=== PATIENT | male | born 1995 | race Asian ===

== ENCOUNTER 2019-03-03 06:23 | Emergency (ER) | payer OTHER ==
[~2019-03-03] VITALS: Ht 167.6 cm; Wt 91.6 kg
[2019-03-03 06:35] VITALS: BP_SYST 136
[2019-03-03 07:10] LABS: BILIRUBIN,URINE NEGATIVE (NEGATIVE); BLOOD, URINE NEGATIVE (NEGATIVE); CLARITY/URINE SL HAZY (CLEAR); COLOR,URINE YELLOW (YELLOW); GLUCOSE,URINE NEGATIVE (NEGATIVE); KETONES,URINE NEGATIVE (NEGATIVE); LEUKOCYTE ESTERASE ,URINE NEGATIVE (NEGATIVE); NITRITE, URINE NEGATIVE (NEGATIVE); PH,URINE 5.5 (5.0-8.0); PROTEIN URINE NEGATIVE (NEGATIVE); UROBILINOGEN,URINE 0.2 (0.2-1.0)
[2019-03-03 07:45] VITALS: BP_SYST 138
== END 2019-03-03 07:45 | disposition home or self-care (01) ==
LOC: SED 06:23
DX: N34.2 Other urethritis (principal); R30.0 Dysuria
CPT/HCPCS: 81003; 99283

== ENCOUNTER 2022-06-02 08:35 | Emergency (ER) | payer OTHER ==
[~2022-06-02] VITALS: Ht 167.6 cm; Wt 83.9 kg
[2022-06-02 08:41] VITALS: BP_SYST 142
--- NOTE | 2022-06-02 08:45 | NUR ---
Patient to ER bed 08 for evaluation. Side rails up. Report given to GLORIA Randolph.
--- NOTE | 2022-06-02 08:45 | NUR ---
DR. MERCEDES AT BEDSIDE TO ASSESS PT. PT HAS C/O BACK PAIN RADIATING TO LEFT THIGH, PT HAS PAST HX OF HERNIATED DISCS. RESP E/U. ON R/A. VSS. AT BEDSIDE.
[2022-06-02] MEDS ORDERED: DIAZEPAM 5 MG TABLET (VALIUM) PO ONE (09:00)
[2022-06-02] MEDS ORDERED: MORPHINE SULFATE 10 MG/ML VIAL IM ONE (09:00)
[2022-06-02] MEDS ORDERED: PRED20TA PO (09:15)
[2022-06-02] MEDS ORDERED: HYDR-3921 PO (09:15)
[2022-06-02] MEDS ORDERED: METH-634 PO (09:15)
[2022-06-02] MEDS ORDERED: IBUP-1969 PO (09:15)
[2022-06-02 10:34] VITALS: BP_SYST 138
--- NOTE | 2022-06-02 10:39 | NUR ---
Patient given written and verbal discharge instructions and verbalizes understanding. ER MD discussed with patient the results and treatment provided. Patient in stable condition. ID arm band removed. Rx of NORCO, IBUPRFEN, ROBAXIN, PREDNISONE given. Patient educated on pain management and to follow up with PMD. Pain Scale . Opportunity for questions provided and answered. Medication side effect fact sheet provided.
== END 2022-06-02 10:34 | disposition home or self-care (01) ==
LOC: SED 08:35
DX: M54.50 Low back pain, unspecified (principal); G89.29 Other chronic pain; M54.16 Radiculopathy, lumbar region; Z79.899 Other long term (current) drug therapy
CPT/HCPCS: 99283; 72100; 96372; J2270

== ENCOUNTER 2022-10-09 08:50 | Emergency (ER) | payer BC, OTHER ==
[~2022-10-09] VITALS: Ht 167.6 cm; Wt 93.0 kg
[~2022-10-09 08:50] MED LIST: HYDR-3921 PO; IBUP-1969 PO; METH-634 PO; PRED20TA PO
[2022-10-09 09:05] VITALS: BP_SYST 96
[2022-10-09] MEDS ORDERED: LIDOCAINE PATCH 5% 1 EA TP STA (09:20)
[2022-10-09] MEDS ORDERED: KETOROLAC TROMETHAMINE 15 MG VIAL IM ONE (09:30)
[2022-10-09] MEDS ORDERED: methocarbamoL 500 MG TABLET PO ONE (09:30)
[2022-10-09] MEDS ORDERED: HYDROcodone/ACETAMIN 5-325 MG TAB (NORCO/ VICODIN) PO ONE (09:30)
--- NOTE | 2022-10-09 09:46 | NUR ---
PT NOT IN LOBBY ROOM TO BE CALLED INTO HALLWAY BED.
[2022-10-09] MEDS ORDERED: LIDO1ADH77 TD (10:13)
[2022-10-09] MEDS ORDERED: IBUP-1969 PO (10:14)
[2022-10-09] MEDS ORDERED: METH-634 PO (10:14)
--- NOTE | 2022-10-09 11:05 | NUR ---
27-year-old male with history of chronic back pain, presents with flareup of his lumbar back pain. Patient states he initially sustained an injury in 2018. He is seen at the [facility] has had an MRI in the past and has another 1 upcoming in November. Patient states that he woke up today with a flareup, which recurs every few months. He said the pain is mostly left lumbar region with radiation into his left buttock and thigh. Denies any recent injuries or trauma. Denies IV drug abuse. No lower extremity weakness, pt ambulates with limp in gait. Patient is using Motrin at home and lidocaine patches with some help.
--- NOTE | 2022-10-09 11:08 | NUR ---
ER at bedside examining patient.
--- NOTE | 2022-10-09 13:20 | NUR ---
Patient given written and verbal discharge instructions and verbalizes understanding. ER MD discussed with patient the results and treatment provided. Patient in stable condition. ID arm band removed. Rx of LIDOCAINE MOTRIN AND PAIN MEDICATION given. Patient educated on pain management and to follow up with PMD. Opportunity for questions provided and answered. Medication side effect fact sheet provided.
[2022-10-09 13:21] VITALS: BP_SYST 110
== END 2022-10-09 13:20 | disposition home or self-care (01) ==
LOC: SED 08:50
DX: M54.50 Low back pain, unspecified (principal); M79.652 Pain in left thigh; Z79.899 Other long term (current) drug therapy
CPT/HCPCS: 99283; J1885

== ENCOUNTER 2023-04-17 13:11 | Emergency (ER) | payer BC, OTHER ==
[~2023-04-17] VITALS: Ht 162.6 cm; Wt 77.1 kg
[~2023-04-17 13:11] MED LIST changes: +LIDO1ADH77 TD
[2023-04-17 13:31] VITALS: BP_SYST 142
[2023-04-17] MEDS ORDERED: ceFAZolin SODIUM 1 GM VIAL IM ONE (14:15)
[2023-04-17] MEDS ORDERED: IBUPROFEN 800 MG TABLET PO ONE (14:15)
[2023-04-17] MEDS ORDERED: DICL20GE TP (14:55)
[2023-04-17] MEDS ORDERED: CEPH-548 PO (14:55)
[2023-04-17] MEDS ORDERED: IBUP-1971 PO (14:55)
[2023-04-17 15:13] VITALS: BP_SYST 142
== END 2023-04-17 15:14 | disposition home or self-care (01) ==
LOC: SED 13:11
DX: S50.362A Insect bite (nonvenomous) of left elbow, initial encounter (principal); L03.114 Cellulitis of left upper limb; Z79.899 Other long term (current) drug therapy; W57.XXXA Bitten or stung by nonvenomous insect and other nonvenomous arthropods, initial encounter; Y93.89 Activity, other specified; Y92.89 Other specified places as the place of occurrence of the external cause; Y99.8 Other external cause status
CPT/HCPCS: 99283; 96372; J0690

== ENCOUNTER 2023-04-21 05:07 | Emergency (ER) | payer BC, OTHER ==
[~2023-04-21 05:07] MED LIST changes: +CEPH-548 PO; +DICL20GE TP; +IBUP-1971 PO
--- NOTE | 2023-04-21 05:23 | NUR ---
PT LEFT PRIOR TO TRIAGE WITHOUT BEING SEEN
== END 2023-04-21 05:23 | disposition left against medical advice (07) ==
LOC: SED 05:07
DX: Z53.21 Procedure and treatment not carried out due to patient leaving prior to being seen by health care provider (principal)